=== PATIENT | male | born 1985 | race Hispanic/Latino ===

== ENCOUNTER 2022-08-22 14:46 | Emergency (ER) | payer OTHER ==
[~2022-08-22] VITALS: Ht 165.1 cm; Wt 83.9 kg
[2022-08-22] MEDS ORDERED: KETOROLAC 15MG/ML VIAL (15MG/ML) IM ONE (15:30)
[2022-08-22 16:59] VITALS: BP 156/78
== END 2022-08-22 16:52 ==
LOC: EEVIPCON 14:46 → EDH 14:46
DX: M79.631 Pain in right forearm (principal); Z79.1 Long term (current) use of non-steroidal anti-inflammatories (NSAID)
CPT/HCPCS: 99284; 73090; 73060; 73030; 73110; 96372; J1885 ×2